=== PATIENT | male | born 1950 | race Caucasian/White ===

== ENCOUNTER 2020-10-30 12:16 | Outpatient (REF) | payer MEDICARE, SELFPAY ==
[2020-10-30 12:33] LABS: Glucose Urine UA NEG (NEG); Leukocyte Esterase Urine NEG (NEG); Nitrite Urine NEG (NEG); Urine Blood NEG (NEG); Urine Ketones NEG (NEG); Urine Protein NEG (NEG-TRACE)
[2020-10-30 12:35] LABS: Appearance Urine CLEAR; Color Urine YELLOW
== END 2020-10-30 12:17 | disposition home or self-care (01) ==
LOC: HO.LNP 12:16
PROVIDERS: Visit Provider Internal Medicine Medical Oncology
DX: N40.1 Benign prostatic hyperplasia with lower urinary tract symptoms (principal); R31.9 Hematuria, unspecified
CPT/HCPCS: 81003; 87086

== ENCOUNTER 2021-02-23 12:44 | Outpatient (REF) | payer MEDICARE, SELFPAY ==
--- NOTE | ~2021-02-23 | XR_ITS ---
EXAMINATION: XR CHEST CLINICAL INFORMATION: Cough and wheezing COMPARISON: Chest x-ray 01/31/2018 TECHNIQUE: 2 views of the chest were obtained. FINDINGS: Cardiac silhouette is normal in size. The lungs are adequately aerated. There is no lobar consolidation. No pleural effusion or pneumothorax. Mild degenerative changes of the spine. Partially visualized aortic stent graft. XR/XR chest 2V IMPRESSION: Stable examination demonstrating no acute pulmonary pathology.
== END 2021-02-23 12:45 | disposition home or self-care (01) ==
LOC: HO.XRAY 12:44
PROVIDERS: PCP Internal Medicine Medical Oncology; Visit Provider Internal Medicine Medical Oncology
DX: R05.9 Cough, unspecified (principal); R06.2 Wheezing
CPT/HCPCS: 71046

== ENCOUNTER 2024-01-30 09:19 | Outpatient (REF) | payer MEDICARE, SELFPAY ==
--- NOTE | ~2024-01-30 | XR_ITS ---
EXAMINATION: XR CHEST CLINICAL INFORMATION: Cough. COMPARISON: 02/23/2021 TECHNIQUE: 2 views of the chest were obtained. FINDINGS: Redemonstration of right shoulder prosthesis. Heart size is normal. There is no gross pneumothorax. Lung volumes are low. Degenerative changes in the thoracic spine. Redemonstration of partially imaged stent graft in the aorta. Degenerative changes in the thoracic spine. No significant pleural effusion. Increased mild streaky bibasilar opacities, predominantly in the left lung base. XR/XR chest 2V IMPRESSION: Increased mild streaky bibasilar opacities, predominantly in the left lung base. This study was presented today 01/30/2024 for interpretation. Stat results provided at this time as requested by referring provider. Electronically signed by: Ольга Waldron MD 01/30/2024 01:03 PM EDT
== END 2024-01-30 09:20 | disposition home or self-care (01) ==
LOC: HO.XRAY 09:19
PROVIDERS: PCP Internal Medicine Medical Oncology; Visit Provider Internal Medicine Medical Oncology
DX: R05.9 Cough, unspecified (principal)
CPT/HCPCS: 71046

== ENCOUNTER 2024-02-15 16:06 | Outpatient (REF) | payer MEDICARE, SELFPAY ==
--- NOTE | ~2024-02-15 | US_ITS ---
EXAMINATION: US TRIPLEX LOWER EXTREMITY, RIGHT CLINICAL INFORMATION: Leg pain COMPARISON: Right lower extremity duplex on 04/12/12 TECHNIQUE: Color-flow triplex imaging with spectral analysis and compression Doppler were performed on the right lower extremity. FINDINGS: Respiratory variation, normal compression and augmented flow are noted throughout the right lower extremity. The visualized common femoral vein, superficial femoral vein, profunda femoral vein, popliteal vein and midcalf peroneal and posterior tibial venous segments show no evidence of deep venous thrombosis. Right groin lymph node measuring 3.1cm. US/US venous duplex LE RT IMPRESSION: No evidence of deep venous thrombosis involving the right lower extremity. Electronically signed by: Shannen Jo MD 02/15/2024 06:22 PM EDT
== END 2024-02-15 16:07 | disposition home or self-care (01) ==
LOC: HO.US 16:06
PROVIDERS: PCP Internal Medicine Medical Oncology; Visit Provider Internal Medicine Medical Oncology
DX: M79.604 Pain in right leg (principal); R60.0 Localized edema
CPT/HCPCS: 93971

== ENCOUNTER 2024-03-13 12:14 | Outpatient (REF) | payer MEDICARE, SELFPAY ==
--- NOTE | ~2024-03-13 | XR_ITS ---
EXAMINATION: XR CHEST CLINICAL INFORMATION: CHRONIC COUGH. EXAMINATION: XR CHEST CLINICAL INFORMATION: 01/30/2024 TECHNIQUE: 2 views of the chest were obtained. FINDINGS: Redemonstration of right shoulder prosthesis. Degenerative changes in the thoracic spine. Heart size is normal. There is no gross pneumothorax. Lung volumes are low. Degenerative changes in the thoracic spine. Redemonstration of partially imaged stent graft in the aorta. No significant pleural effusion. Persistent streaky opacities at the medial right lung base. XR/XR chest 2V IMPRESSION: Persistent streaky opacities at the medial right lung base. This study was presented today March 14, 2024 for interpretation. Stat results provided at this time as requested by referring provider. Electronically signed by: Ольга Waldron MD 03/14/2024 05:14 AM CATHI
== END 2024-03-13 12:15 | disposition home or self-care (01) ==
LOC: HO.XRAY 12:14
PROVIDERS: PCP Internal Medicine Medical Oncology; Visit Provider Internal Medicine Medical Oncology
DX: R05.3 Chronic cough (principal)
CPT/HCPCS: 71046

== ENCOUNTER 2024-07-16 12:01 | Outpatient (REF) | payer MEDICARE, SELFPAY ==
--- NOTE | ~2024-07-16 | XR_ITS ---
EXAMINATION: XR CHEST CLINICAL INFORMATION: PAIN COMPARISON: 03/13/2024, 01/30/2024. TECHNIQUE: 2 views of the chest were obtained. FINDINGS: The cardiac, hilar, and mediastinal contours are normal. Aortic mural calcification. Partially imaged aortic stent graft just above the hiatus and extending into the abdomen. The lungs are clear bilaterally. There is no pneumothorax or pleural effusion. There is no focal osseous or soft tissue abnormality. Ribs appear intact. Right reverse shoulder arthroplasty. Degenerative changes left shoulder joints and throughout the spine. Cholecystectomy clips. XR/XR chest 2V IMPRESSION: 1. No active pulmonary disease. 2. Partially imaged aortic stent graft just above the hiatus and extending into the upper abdomen. Electronically signed by: Pérez Bundy MD 07/16/2024 01:12 PM EDT
--- NOTE | ~2024-07-16 | XR_ITS ---
CLINICAL HISTORY: CHEST PAIN,RIB PAIN 2 view left ribs Comparison: None Findings: Chronic healed fracture of the left 5th rib. No acute fracture. The lungs are unremarkable. There is an endograft at the level of the abdominal aorta. IMPRESSION: 1. No acute findings This document has been electronically signed by: Kaila Morgan MD on 07/17/2024 15:37:22
--- OUTSIDE RECORDS SUMMARY | 2024-07-16 13:46 | XMS_ITS | Clinical Summary ---
Author Organization [employer] Address [address] [place] [address] Phone Care Team Providers Care Merchandise Presentation Associate Name Role Phone Jake Burns MD Primary Care Provider [phone] Allergies No known active allergies Medications rivaroxaban (Xarelto) 20 mg tablet Take 1 tablet (20 mg total) by mouth 1 (one) time each day. 12/30/2023 Active allopurinoL (ZYLOPRIM) 100 mg tablet Take 1 tablet (100 mg total) by mouth 2 (two) times a day. Active clopidogreL (PLAVIX) 75 mg tablet Take 1 tablet (75 mg total) by mouth 1 (one) time each day. Active amLODIPine (NORVASC) 10 mg tablet Take 1 tablet (10 mg total) by mouth 1 (one) time each day. 05/29/2013 Active metoprolol succinate (TOPROL-XL) 100 mg 24 hr tablet Take 1 tablet (100 mg total) by mouth 1 (one) time each day. 10/24/2013 Active omeprazole (PriLOSEC) [address] capsule Take 1 capsule (20 mg total) by mouth 1 (one) time each day. Active tamsulosin (FLOMAX) 0.4 mg 24 hr capsule Take 1 capsule by mouth daily. Take 30 mins after same meal every day. Active citalopram (CeleXA) 20 mg tablet Take 1 tablet (20 mg total) by mouth 1 (one) time each day. Active atorvastatin (LIPITOR) 40 mg tablet Take 1 tablet (40 mg total) by mouth 1 (one) time each day. Active Active Problems Problem Noted Date Diagnosed Date Coronary artery disease 06/17/2022 Overview (05/03/2024): - cardiac cath 04/2022 following abnormal stress test showed?short left main, 60% proximal LAD lesion, 40% D1, 99% ostial proximal RCA with unsuccessful PCI of the ostial RCA (wire uncrossable), and 40% mid RCA disease. ??The LAD was IFR??negative therefore two-vessel bypass was not recommended. ??The chronic ostial RCA disease was noted to have [id number] collaterals and not able to be treated using standard PCI techniques and escalation of antianginal therapy was recommended. - seen by Dr. 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 At that time, he was felt to have class 0-I angina and given no activity limitations, vacation when his along with Dr. Gill elected for ongoing medical therapy. STOCK PREPARATION OPERATOR intervention could be considered for lifestyle limiting angina refractory to medication. Last Assessment & Plan: Patient has known coronary artery disease with from cardiac cath in April 2022 showing complicated STOCK PREPARATION OPERATOR of his RCA with collateral flow and IFR negative LAD disease. Patient did meet with Dr. Gill, and through shared decision-making, elected for ongoing medical therapy. He continues without anginal sounding chest discomfort with his typical activities. Patient reports very infrequent anginal symptoms with above average exertion. Recently exerted himself while he was moving out of the [facility] and had no chest discomfort at all. Patient will continue on his beta-sarkis, calcium channel sarkis, ANGEL inhibitor, baby aspirin, and statin Assessment & Plan (06/27/2024 5:28 PM EDT): He is currently on Plavix and Xarelto, not on aspirin, which is acceptable (Plavix given history of peripheral vascular disease chronically). He is not experiencing any anginal symptoms. He will continue atorvastatin 40 mg and metoprolol for rate control and CAD history. AAA (abdominal aortic aneurysm) 06/10/2022 Atrial fibrillation 08/25/2020 Overview (05/03/2024): Last Assessment & Plan: Patient is in sinus rhythm today following an episode of paroxysmal atrial fibrillation while he was on [place]. He declined cardioversion during his ER visit and spontaneously converted. He seems only minimally symptomatic from his atrial fibrillation as he cannot clearly tell that he reverted back to sinus. Should continue on beta-sarkis for rate control as well as anticoagulation with Xarelto given high [id number] score. Patient has not had any issues with abnormal bleeding. Will continue on current medication regiment. Patient's been educated on signs of worsening symptoms when to report to the office or when to present to the ED. Assessment & Plan (06/27/2024 5:28 PM EDT): He has spontaneously converted to sinus bradycardia, confirmed today. Options discussed include ablation, watchful waiting, and antiarrhythmics. Through shared decision-making, he opted for a referral to electrophysiology to discuss ablation for long-term management. Risks, benefits, and potential success rates were briefly discussed, but a more thorough conversation will occur with electrophysiology. An updated echocardiogram will be performed as he has not had one in several years. He will continue Xarelto 20 mg at bedtime. Literature about ablations was provided for him to read on his own time. Orders: ECG 12 lead Ambulatory referral to Cardiac Electrophysiology; Future Transthoracic echocardiogram (TTE) complete with PRN contrast, bubble, strain, and 3D order panel; Future Hyperlipidemia 08/25/2020 Overview (05/03/2024): Last Assessment & Plan: Patient should continue on current dose of statin. Given his extensive vascular disease, ideal LDL should be at least less than 70, closer to 55 or less Obesity (BMI 30-39.9) 08/25/2020 Paroxysmal supraventricular tachycardia 08/26/19 21 Hypertension 08/25/2020 Overview (05/03/2024): Last Assessment & Plan: Patient's blood pressure is well-controlled today should continue on current regimen. Assessment & Plan (06/27/2024 5:28 PM EDT): Well-controlled on current regimen, continue Resolved Problems Problem Noted Date Diagnosed Date Resolved Date NSTEMI (non-ST elevated myoc ardial infarction) 06/10/2022 06/27/2024 Unstable angina 06/10/2022 06/27/2024 Encounters Date Type Department Care Team Description 07/10/2024 Lab Requisition [facility] Lab [address] [facility] [place] [id number] Robinson Nava PA Benign essential microscopic hematuria 05/31/2024 9:20 AM EST Office Visit [facility] [address] [place] [address] Ines Horowitz MD Atrial fibrillation, unspecified type (CMS/HCC) (Primary Dx); Coronary artery disease due to lipid rich plaque; Primary hypertension 05/11/2024 2:00 PM EST Clinical Support [facility] [address] [place] [address] Atrial fibrillation, unspecified type (CMS/HCC) (Primary Dx) 05/10/2024 Telephone [facility] - [address] [place] [address] Ines Horowitz MD Atrial Fibrillation from Last 3 Months Surgical History Surgery Date Site/Laterality Comments OTHER SURGICAL HISTORY 01/15/2020 PROCEDURE: HISTORICAL AAA REPAIR; COMMENT: Endovascular repair of abdominal aortic aneurysm OTHER SURGICAL HISTORY 02/28/2019 PROCEDURE: HISTORY OTHER; COMMENT: Right reverse Basom total shoulder arthroplasty by [employer] OTHER SURGICAL HISTORY 08/23/2012 PROCEDURE: HISTORY OTHER; COMMENT: Laparoscopic cholecystectomy and umbilical hernia repair OTHER SURGICAL HISTORY 04/28/2012 PROCEDURE: HISTORY OTHER; COMMENT: Right knee diagnostic and operative arthroscopy with partial medial, partial lateral meniscectomies OTHER SURGICAL HISTORY 01/02/2010 PROCEDURE: HISTORY OTHER; COMMENT: Right distal triceps tendon repair OTHER SURGICAL HISTORY 02/13/2007 PROCEDURE: UPPER GI ENDOSCOPY, REMOVE LESION COLONOSCOPY 02/13/2007 PROCEDURE: HISTORICAL COLONOSCOPY Medical History Medical History Date Comments AAA (abdominal aortic aneury sm) (CMS/HCC) DX:AAA (abdominal aortic ane urysm) (HCC) Benign prostatic hyperplasia DX: Benign prostatic hyperplasia Depression DX:Depression Ex-smoker DX:Ex-smoker GERD (gastroesophageal reflux disease) DX:GERD (gastroesophageal reflux disease) Gout DX:Gout History of alcohol abuse DX:Hist ory of alcohol abuse Hiatal hernia DX:Hiatal hernia Covid DX:COVID Obesity (BMI 30-39.9) DX:Obesity (BMI 30-39.9) Family History Medical History Relation Name Comments Other: Cancer of testicle Brother Stroke Brother Heart attack Father Other: Heart disease Father at 64 Dementia Mother Stroke Mother Relation Name Status Comments Brother Father Mother Social History Tobacco Use Types Packs/Day Years Used Date Smoking Tobacco: Former Cigarettes Q uit: 04/18/1970 Smokeless Tobacco: Never Tobacco Cessation:Counseling Given: Not Answered Comments:Quit in 1970 Alcohol Use Standard Drinks/Week Comments Not Currently 0 (1 standard drink = 0.6 oz pur e alcohol) Sex and Gender Information Value Date Recorded Sex Assigned at Not on file Legal Sex Male 9:56 AM EST Gender Identity Not on file Sexual Orientation Not on file Obstetrics History Last Filed Vital Signs Vital Sign Reading Time Taken Comments Blood Pressure 126/62 05/31/2024 9:07 AM EST Pulse 58 05/31/2024 9:07 AM EST Temperature - - Respiratory Rate - - Oxygen Saturation 99% 05/31/2024 9:07 AM EST Inhaled Oxygen Concentration - - Weight 77.4 kg (170 lb 9.6 oz) 05/31/2024 9:07 A M EST Height 172.7 cm (5' 8 ) 05/31/2024 9:07 AM EST Body Mass Index 25.94 05/31/2024 9:07 AM EST Plan of Treatment Upcoming Encounters Date Type Department Care Team (Late st Contact Info) Description 08/02/2024 7:00 AM EDT Ancillary Procedure [facility] [address] [place] [address] Health Maintenance Due Date Last Done Comments Zoster Vaccines (1 of 2) 1999 Pneumococcal Vaccine: 50+ Years (2 of 2 - PCV) 06/23/2013 06/23/2012 Cholesterol Screening (Lipid Panel) 03/21/2022 Colorectal Cancer Screening: Colonoscopy 03/21/2022 Depression Screening 03/21/2022 Falls Risk Assessment 03/21/2022 Hepatitis C Screening 03/21/2022 Social Influencers of Health Screening 03/21/2022 Medicare Annual Wellness Visit 09/09/2023 09/08/2022 COVID-19 Vaccine ( season) 2023 11/03/2021, 03/23/2021, 07/24/2020, Additional history exists RSV Immunization Patients 60+ Years Old (1 - 1-dose 75+ series) 2024 Hypertension/CHF/CAD Annual BMP Blood Test 12/31/2024 01/01/2024, 01/01/2024 DTaP,Tdap,and Td Vaccines (2 - Td or Tdap) 02/24/2026 02/25/2016 Influenza Vaccine Completed 05/01/2024, , 02/14/2023, Additional history exists HIB Vaccines Aged Out No longer eligi ble based on patient's age to complete this topic HPV Vaccines Aged Out No longer eligi ble based on patient's age to complete this topic Hepatitis A Vaccines Aged Out No long er eligible based on patient's age to complete this topic Hepatitis B Vaccines Aged Out No long er eligible based on patient's age to complete this topic IPV Vaccines Aged Out No longer eligi ble based on patient's age to complete this topic MMR Vaccines Aged Out No longer eligi ble based on patient's age to complete this topic Meningococcal ACWY Vaccine Aged Out N o longer eligible based on patient's age to complete this topic Meningococcal B Vacine Aged Out No lo nger eligible based on patient's age to complete this topic RSV Immunization Patients Under 20 months Aged Out No longer eligible based on patient's age to complete this topic Varicella Vaccines Aged Out No longer eligible based on patient's age to complete this topic Procedures Procedure Name Priority Date/Time Associated Diagnosis Comments AP OUTSIDE CONSULT Routine 07/06/2024 12 :00 AM EDT Benign essential microscopic hematuria ECG 12-LEAD Routine 05/31/2024 9:19 AM EST Atrial fibrillation, unspecified type (CMS/HCC) ECG 12-LEAD Routine 05/11/2024 2:03 PM EST Atrial fibrillation, unspecified type (CMS/HCC) ANNUAL BMP BLOOD TEST Routine 01/01/2024 from Last 3 Months or Most Recently Relevant to Health Maintenance Results * Anatomic pathology outside consult (07/06/2024 12:00 AM EDT) Final Diagnosis A. Urine, Voided, ([id number]): Atypical urothelial cells Note: Based upon the cytologic findings, UroVysion testing will be performed, the result to follow in an addendum. 07/13/2024 9:53 AM EDT [facility] Clinical Information Benign essential microscopic hematuria R31.1 Urine cytology with reflex UroVysion ([facility]) 07/13/2024 9:53 AM EDT [facility] Gross Description A. Urine, Voided, ([id number]): Received is one ThinPrep slide for cytology. 07/13/2024 9:53 AM EDT [facility] Disclaimer Unless otherwise specified, all tissue is 10% NB formalin fixed and paraffin embedded. Technical pathology services provided by [facility] at [address], [place] [address] (CLIA #[id number]/Sa elisa Tran MD, Fruit [employer]) 07/13/2024 9:53 AM EDT [facility] Tissue Urine specimen from urethra / Unknown 07/06/2024 07/10/2024 1:25 PM EDT [facility] PATHOLOGY ORDERABLES Final Result [facility] [address] [place] [address], * ECG 12 lead (05/31/2024 9:19 AM EST) Only the most recent of2 resultswithin the time period is included. Ventricular Rate ECG 51 BPM GEMUSE Atrial Rate 51 BPM GEMUSE P-R Interval 202 ms GEMUSE QRS Duration 98 ms GEMUSE Q-T Interval 470 ms GEMUSE QTc 433 ms GEMUSE P Wave [place] 72 degrees GEMUSE R [place] -36 degrees GEMUSE T [place] 81 degrees GEMUSE ECG Interpretation Sinus bradycardia Left axis deviation Inferior ??myocardial infarction , age undetermined Poor R wave progression -possible ??Septal infarct , age undetermined Abnormal ECG When compared with ECG of 11-MAY-2024 14:03, Sinus rhythm has replaced Atrial fibrillation Confirmed by INES HOROWITZ ([id number]) on 06/13/2024 9:21:32 AM GEMUSE 05/31/2024 9:19 AM EST 06/13/2024 9:21 AM EST Ines Horowitz MD ECG ORDERABLES Final Result GEMUSE * Annual BMP Blood Test (01/01/2024) Annual BMP Blood Test abstracted Historical Provider HEALTH MAINTENANCE Final Result from Last 3 Months or Most Recently Relevant to Health Maintenance Insurance MEDICARE [facility] Care Teams Merchandise Presentation Associate Relationship Specialty Start Date End Date Burns, Jake E, MD [address] [address] PCP - General Oncology 05/11/24
--- OUTSIDE RECORDS SUMMARY | 2024-07-16 13:46 | XMS_ITS | Encounter Summary ---
Author Organization [facility] Address [address] [place] [address] Care Team Providers Care Multilith Operator Name Role Phone Jake Burns MD Primary Care Provider [phone] Encounter Details Date Type Department Care Team (Late Contact Info) Description 07/10/2024 Lab Requisition [facility] - Main Lab [address] [facility] [place] [address] Robinson Nava, JOHN [address] [place] [address] Benign essential microscopic hematuria Social History Tobacco Use Types Packs/Day Years Used Date Smoking Tobacco: Former Cigarettes Q uit: 04/18/1970 Smokeless Tobacco: Never Comments:Quit in 1970 Alcohol Use Standard Drinks/Week Comments Not Currently 0 (1 standard drink = 0.6 oz pur e alcohol) Sex and Gender Information Value Date Recorded Sex Assigned at Not on file Legal Sex Male 9:56 AM EST Gender Identity Not on file Sexual Orientation Not on file documented as of this encounter Plan of Treatment Upcoming Encounters Date Type Department Care Team (Late Contact Info) Description 08/02/2024 7:00 AM EDT Ancillary Procedure [facility] - [address] [place] [id number] documented as of this encounter Procedures Procedure Name Priority Date/Time Associated Diagnosis Comments AP OUTSIDE CONSULT Routine 07/06/2024 12 :00 AM EDT Benign essential microscopic hematuria documented in this encounter Results * Anatomic pathology outside consult (07/06/2024 12:00 AM EDT) Final Diagnosis A. Urine, Voided, ([id number]): Atypical urothelial cells Note: Based upon the cytologic findings, UroVysion testing will be performed, the result to follow in an addendum. 07/13/2024 9:53 AM EDT [facility] Clinical Information Benign essential microscopic hematuria R31.1 Urine cytology with reflex UroVysion ([facility]) 07/13/2024 9:53 AM EDT [facility] Gross Description A. Urine, Voided, ([id number]): Received is one ThinPrep slide for cytology. 07/13/2024 9:53 AM EDT [facility] Disclaimer Unless otherwise specified, all tissue is 10% NB formalin fixed and paraffin embedded. Technical pathology services provided by [facility] at [address], [place] [address] (CLIA #[id number]/Sa elisa Tran MD, Drop Count Associate) 07/13/2024 9:53 AM EDT [facility] Tissue Urine specimen from urethra / Unknown 07/06/2024 07/10/2024 1:25 PM EDT [facility] PATHOLOGY ORDERABLES Final Result [facility] [address] [place] [address], documented in this encounter Visit Diagnoses Diagnosis Benign essential microscopic hematuria documented in this encounter Care Teams Multilith Operator Relationship Specialty Start Date End Date Jake Burns MD [address] [address] PCP - General Oncology 05/11/24 documented as of this encounter
== END 2024-07-16 12:02 | disposition home or self-care (01) ==
LOC: HO.XRAY 12:01
PROVIDERS: PCP Internal Medicine Medical Oncology; Visit Provider Internal Medicine Medical Oncology
DX: R07.81 Pleurodynia (principal); R07.9 Chest pain, unspecified; Z87.81 Personal history of (healed) traumatic fracture; Z95.5 Presence of coronary angioplasty implant and graft; W19.XXXA Unspecified fall, initial encounter
CPT/HCPCS: 71046; 71100

== ENCOUNTER → 2024-07-16 12:09 | Outpatient (BNV) | payer MEDICARE, SELFPAY | PROVIDERS: PCP Internal Medicine Medical Oncology; Visit Provider Radiology Diagnostic Radiology | DX: R07.9 Chest pain, unspecified (principal) | CPT/HCPCS: 71046 ==